=== PATIENT | female | born 1970 | race Caucasian/White ===

== ENCOUNTER 2021-05-18 15:23 | Emergency (ER) | payer MEDICARE, SELFPAY ==
[2021-05-18 15:24] VITALS: BP 117/70; PULSE 84; RESP 16; TEMP 36.4; O2SAT 96; BMI 21.6
--- NOTE | 2021-05-18 15:30 | RAD_ITS ---
HISTORY: PAIN EXAMINATION/TECHNIQUE: XR Foot Min 3 Views: COMPARISON: None FINDINGS: BONES/JOINTS: No acute fracture or dislocation. Preservation of the joint spaces. No sclerotic or destructive changes observed. SOFT TISSUES: No soft tissue swelling or gas. No radiopaque foreign body. RAD/Foot min 3 Views IMPRESSION: No acute bony abnormality. at 1602 Reported and signed by: Yunior Clifford MD Electronically Signed: Yunior Clifford MD at 16:00 EDT Tel , Service support ,
--- NOTE | 2021-05-18 16:50 | ED.VIS.LOWEX ---
HPI History of Present Illness Chief Complaint: Lower Extremity Injury Informant: patient Narrative Narrative: Patient complains of right foot pain. 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 She had multiple spasms of her right foot yesterday. She has had this because fractures in the past. She was just concerned because her foot was still sore today. No fevers or chills. When the foot gets colder the symptoms and spasm gets worse. Keeping them warm helps. This is typical pattern for her. There is no acute trauma other than the spasms as above. [facility] Medical History (Updated 05/18/21 @ 16:[address] Heath Castellon MD) Diabetes 1.5, managed as type 2 Hypertension Neuropathy Stiff person syndrome Home Medications aspirin 81 mg PO DAILY 05/18/21 [History Last Taken Unknown] baclofen 10 mg PO TID 05/18/21 [History Last Taken Unknown] dextroamphetamine-amphetamine [Adderall] 30 mg PO BID 05/18/21 [History Last Taken Unknown] ergocalciferol (vitamin D2) [Vitamin D2] 1,250 mcg PO QWEEK 05/18/21 [History Last Taken Unknown] escitalopram oxalate [Lexapro] 20 mg PO DAILY 05/18/21 [History Last Taken Unknown] gabapentin [Neurontin] 600 mg PO TID 05/18/21 [History Last Taken Unknown] hydrochlorothiazide 25 mg PO DAILY 05/18/21 [History Last Taken Unknown] immune globulin (human) (IgG) [Immune Globulin] 3 g IV QMONTH 05/18/21 [History Last Taken Unknown] magnesium 15 mg PO QHS 05/18/21 [History Last Taken Unknown] mecobalamin (vitamin B12) [B12 Active] 1,000 mcg PO DAILY 05/18/21 [History Last Taken Unknown] metformin 1,000 mg PO BID 05/18/21 [History Last Taken Unknown] metoclopramide HCl [Reglan] 5 mg PO DAILY PRN 05/18/21 [History Last Taken Unknown] omega-3 fatty acids [[place] 3 Fish Oil] 1,000 mg PO DAILY 05/18/21 [History Last Taken Unknown] oxymetazoline [Nasal [place] (oxymetazoline)] drp INTRANASAL 05/18/21 [History Last Taken Unknown] potassium chloride 20 meq PO BID 05/18/21 [History Last Taken Unknown] [id number] [] 1 tab PO DAILY 05/18/21 [History Last Taken Unknown] pyridostigmine bromide [Mestinon] 60 mg PO TID 05/18/21 [History Last Taken Unknown] sodium chloride 1,000 mg PO DAILY 05/18/21 [History Last Taken Unknown] solifenacin [Vesicare] 5 mg PO DAILY 05/18/21 [History Last Taken Unknown] sumatriptan succinate [Imitrex] 50 mg PO Q2H PRN 05/18/21 [History Last Taken Unknown] verapamil 240 mg PO DAILY 05/18/21 [History Last Taken Unknown] Allergy/AdvReac Type Severity Reaction Status Date / Time HERLINDA Inhibitors Allergy Swelling Verified 05/18/21 15:28 meperidine [From Demerol] AdvReac Vomiting Verified 05/18/21 15:28 pramipexole AdvReac Vomiting Verified 05/18/21 15:28 Surgical History (Updated 05/18/21 @ 16:05 by Sisi Molina) H/O shoulder surgery History of cholecystectomy Social History Smoking Status: Current some day smoker tobacco type: cigarettes ROS ROS ED Constitutional Constitutional ED: Denies chills or fever(s) Cardiovascular Cardiovascular: Denies chest pain or palpitations Respiratory/Chest Respiratory/Chest: Denies cough or dyspnea Gastrointestinal Gastrointestinal: Denies abdominal pain, nausea or vomiting Musculoskeletal Musculoskeletal: Reports arthralgias and other Details: See history of present illness. Integumentary Denies abscess, Abrasions or rash Neurologic Neurologic: Denies paresthesias or weakness Allergic/Immunologic Allergic/Immunologic ED: Denies urticaria EXAM Physical Exam Const Vital Signs: 05/18/21 15:24 Temperature 97.5 F L Temperature Source Temporal Pulse Rate 84 Respiratory Rate 16 Blood Pressure 117/70 Blood Pressure Mean 85 Pulse Ox 96 Oxygen Delivery Method Room Air Positive well nourished HEENT normocephalic and atraumatic Neck full ROM Resp normal respiratory effort Extremity normal to inspection Extremity Narrative: Both lower extremities have normal shape and structure. There is no swelling. No erythema. There are tattoos but no sign of infection. Pulses are normal. Skin no wounds Lesions: no lesions Rashes: no rashes Trauma: Negative for abrasion, laceration or puncture MDM MDM MDM Narrative Medical decision making narrative: Review of her foot looked at by me and read by radiology shows no sign of acute fracture. I explained to the patient she can follow-up with her physician. She has all her meds for spasm at home. If she still having symptoms she may need repeat imaging. She has also had MRI show fractures in the past. This can be done by her primary physician. We discussed reasons to prompt returning. Radiography Diagnostic Testing: Radiology Impression Foot X-Ray 05/18/21 15:30 IMPRESSION: No acute bony abnormality. at 1602 Reported and signed by: Yunior Clifford MD Electronically Signed: Yunior Clifford MD at 16:00 EDT Tel , Service support , Discharge Plan Triage Chief Complaint: Lower Extremity Injury ED Provider: Heath Castellon Dx/Rx/DC Orders Clinical Impression: Acute foot pain Instructions: ED Foot Sprain Prescriptions: No Action magnesium 500 mg Tablet 15 mg PO QHS RF: 0 sodium chloride 1 gram Tablet 1,000 mg PO DAILY RF: 0 sumatriptan succinate [Imitrex] 50 mg Tablet 50 mg PO Q2H PRN (Reason: Headache) RF: 0 Immune Globulin 3 gram Recon Soln 3 g IV QMONTH RF: 0 dextroamphetamine-amphetamine [Adderall] 30 mg Tablet 30 mg PO BID RF: 0 metoclopramide HCl [Reglan] 5 mg Tablet 5 mg PO DAILY PRN (Reason: Nausea) RF: 0 baclofen 10 mg Tablet 10 mg PO TID RF: 0 1 mg Tablet 1 tab PO DAILY RF: 0 metformin 1,000 mg Tablet 1,000 mg PO BID RF: 0 pyridostigmine bromide [Mestinon] 60 mg Tablet 60 mg PO TID RF: 0 gabapentin [Neurontin] 300 mg Capsule 600 mg PO TID RF: 0 verapamil 240 mg Tablet Extended Release 240 mg PO DAILY RF: 0 aspirin 81 mg Tablet 81 mg PO DAILY RF: 0 hydrochlorothiazide 25 mg Tablet 25 mg PO DAILY RF: 0 ergocalciferol (vitamin D2) [Vitamin D2] 1,250 mcg (50,000 unit) Capsule 1,250 mcg PO QWEEK RF: 0 escitalopram oxalate [Lexapro] 20 mg Tablet 20 mg PO DAILY RF: 0 [place] 3 Fish Oil Capsule 1,000 mg PO DAILY RF: 0 Nasal [place] (oxymetazoline) 0.05 % Drops INTRANASAL RF: 0 solifenacin [Vesicare] 5 mg Tablet 5 mg PO DAILY RF: 0 potassium chloride 20 mEq Tablet Extended Release 20 meq PO BID RF: 0 B12 Active 1,000 mcg Tablet,Chewable 1,000 mcg PO DAILY RF: 0 Primary Care Provider: Eliel Echeverria Referrals: Eliel Echeverria DO [Primary Care Provider] - 3-5 Days Disposition Disposition: Home, Self Care
== END 2021-05-18 17:08 | disposition home or self-care (01) ==
LOC: ED 17:07
PROVIDERS: Emergency Provider Emergency Medicine; PCP Student in an Organized Health Care Education/Training Program
DX: M79.671 Pain in right foot (principal); G25.82 Stiff-man syndrome; I10 Essential (primary) hypertension; E13.40 Other specified diabetes mellitus with diabetic neuropathy, unspecified; Z79.82 Long term (current) use of aspirin; Z79.84 Long term (current) use of oral hypoglycemic drugs; Z79.899 Other long term (current) drug therapy; F17.210 Nicotine dependence, cigarettes, uncomplicated
CPT/HCPCS: 73630; 99282